=== PATIENT | female | born 1955 | race Caucasian/White ===

== ENCOUNTER → 2019-09-04 | Outpatient (CLI) | payer BC, OTHER ==
[~2019-09-04] MED LIST: CHOL10002 PO; Calcium 600-D1 EACH PO; ESTR.1TPBW; ESTR.1TPBW TOP; EZET10 PO; HUMULOG SC; HYDMOR2 PO; LISI20 PO; LIVALO4 MG PO; Prometrium200 MG PO; [UNRECOGNIZED DRUG - OTHER] PO
[2019-09-06 15:07] LABS: HPV 16 Negative (Negative); HPV 18 Negative (Negative); HPV OTHER HR TYPES Negative (Negative)
== END | disposition home or self-care (01) ==
LOC: LAB 17:48 → LAB SHORT 17:48
PROVIDERS: Obstetrics & Gynecology Gynecology
DX: Z12.72 Encounter for screening for malignant neoplasm of vagina (principal)
CPT/HCPCS: 87624; G0123